=== PATIENT | female | born 1970 | race Caucasian/White ===

== ENCOUNTER → 2017-02-25 | Outpatient (CLI) | payer OTHER | LOC: CIMAGING 09:09 | PROVIDERS: ATTEND Family Medicine | DX: Z12.31 Encounter for screening mammogram for malignant neoplasm of breast (principal) | CPT/HCPCS: G0202 ==

== ENCOUNTER → 2018-02-10 | Outpatient (CLI) | payer OTHER | LOC: FIMAGING 16:22 | PROVIDERS: ATTEND Internal Medicine Hematology & Oncology | DX: C43.72 Malignant melanoma of left lower limb, including hip (principal) ==

== ENCOUNTER → 2018-02-27 | Outpatient (CLI) | payer OTHER | LOC: CIMAGING 14:20 | PROVIDERS: ATTEND Family Medicine | DX: Z12.31 Encounter for screening mammogram for malignant neoplasm of breast (principal) ==

== ENCOUNTER → 2018-05-30 | Outpatient (CLI) | payer OTHER | LOC: CIMAGING 15:17 | PROVIDERS: ATTEND Family Medicine | DX: R22.2 Localized swelling, mass and lump, trunk (principal) | CPT/HCPCS: 73000-PO ==

== ENCOUNTER → 2018-07-18 | Outpatient (CLI) | payer OTHER | LOC: CIMAGING 15:00 | PROVIDERS: ATTEND Family Medicine | DX: M89.311 Hypertrophy of bone, right shoulder (principal); Z85.820 Personal history of malignant melanoma of skin | CPT/HCPCS: 73000-PO ==